=== PATIENT | female | born 1955 | race Two or more races ===

== ENCOUNTER 2023-01-28 09:27 | Emergency (ER) | payer MEDICARE, BC ==
[~2023-01-28] VITALS: Ht 157.5 cm; Wt 56.7 kg
[2023-01-28 09:49] VITALS: BP 150/76
[2023-01-28] MEDS ORDERED: MUPI22OI2 TP (11:27)
[2023-01-28] MEDS ORDERED: SULF1TAB48 PO (11:27)
[2023-01-28] MEDS ORDERED: IBUP-1955 PO (11:27)
[2023-01-28] MEDS ORDERED: CEPH500C2 PO (11:27)
--- NOTE | 2023-01-28 11:33 | NUR ---
Patient discharged to home in stable condition. Written and verbal after care instructions given. Patient verbalizes understanding of instruction.
== END 2023-01-28 11:34 | disposition home or self-care (01) ==
LOC: ER 09:49
DX: S90.425A Blister (nonthermal), left lesser toe(s), initial encounter (principal); L03.032 Cellulitis of left toe; E78.00 Pure hypercholesterolemia, unspecified; Z79.899 Other long term (current) drug therapy; Z88.1 Allergy status to other antibiotic agents; W57.XXXA Bitten or stung by nonvenomous insect and other nonvenomous arthropods, initial encounter; Y93.89 Activity, other specified; Y92.89 Other specified places as the place of occurrence of the external cause; Y99.8 Other external cause status